=== PATIENT | female | born 1965 ===

== ENCOUNTER → 2020-10-05 15:29 | Outpatient (CLI) | payer BC, SELFPAY ==
--- NOTE | ~2020-10-05 | MR_ITS ---
EXAMINATION: MR foot LT wo con DATE: 10/05/2020 16:43 INDICATION: Plantar fasciitis and fibromatosis presenting with 4 months of left heel pain. TECHNIQUE: Magnetic resonance imaging (MRI) of the left mid and hindfoot was performed without intrav enous contrast. Sequences included sagittal, coronal, and axial proton-density weighted fast spin ech o without and with fat saturation. COMPARISON: None. FINDINGS: Medial ankle ligaments: Deep and superficial deltoid ligaments as well as the spring ligament are normal. Lateral ankle ligaments: The anterior and posterior inferior tibiofibular ligaments are normal. The anterior talofibular, calc aneofibular and posterior talofibular ligaments are normal. Tendons: Tiny enthesophytes at the distal most aspect of the otherwise normal Achilles tendon. Fusiform thicke felisa of the peroneus longus tendon at the level of the retromalleolar groove consistent with mild ten dinopathy without discrete tear. Additional region of tendinopathy with longitudinal split tear locat ed between the trochlear process of the calcaneus and a more distal small os peroneum. The peroneus b marion tendon is normal. The tibialis anterior and extensor hallucis longus and extensor digitorum enrike virgie tendons are normal. The tibialis posterior, flexor digitorum longus and flexor hallucis longus te ndons are normal. Plantar fascia: Thickening and mild increased signal of the central component of the proximal plantar aponeurosis wit h moderate-sized plantar calcaneal spur. There is minimal surrounding soft tissue edema and mild mely ow edema at the calcaneal insertion. Findings are consistent with mild acute on chronic plantar fasci itis/enthesitis. Bones/other: Bone alignment is normal. Aside from the previous noted marrow edema at the calcaneal insertion of th e plantar aponeurosis there is normal marrow signal. No fracture or pathologic marrow replacing proce ss. Joint spaces are normal. Fluid: Physiologic amount of fluid in the joint spaces. No abnormal fluid collections. IMPRESSION: 1. Mild acute on chronic plantar fasciitis/appendicitis. 2. Mild peroneus longus tendinopathy with longitudinal split tearing in the mid tendon immediately pr oximal to a small os peroneum . Reviewed, dictated and finalized at location A. IMPRESSION: 1. Mild acute on chronic plantar fasciitis/appendicitis. 2. Mild peroneus longus tendinopathy with longitudinal split tearing in the mid tendon immediately proximal to a small os peroneum .
== END ==
PROVIDERS: Visit Provider Podiatrist Foot & Ankle Surgery
DX: M72.2 Plantar fascial fibromatosis (principal)
CPT/HCPCS: 73718